=== PATIENT | female | born 1995 | race Hispanic/Latino ===

== ENCOUNTER 2023-02-14 17:34 | Emergency (ER) | payer MEDICAID ==
[~2023-02-14] VITALS: Ht 160 cm; Wt 94.8 kg
[~2023-02-14 17:34] MED LIST: ACET1TAB12 PO; IBUP-2070 PO
[2023-02-14 17:39] VITALS: BP 113/70; PULSE 114; RESP 16; O2SAT 97
[2023-02-14 18:32] LABS: RAPID GROUP A STREP negative (NEGATIVE)
[2023-02-14 18:33] LABS: SARS-CoV-2, RNA, NAAT NEGATIVE SARS CoV-2 (NEGATIVE)
[2023-02-14 18:42] LABS: INFLUENZA TYPE A Negative For Type A (NEGATIVE); INFLUENZA TYPE B Negative For Type B (NEGATIVE)
== END 2023-02-14 20:28 | disposition left against medical advice (07) ==
LOC: EDH 17:34
DX: R05.9 Cough, unspecified (principal); R09.81 Nasal congestion; R51.9 Headache, unspecified; Z53.21 Procedure and treatment not carried out due to patient leaving prior to being seen by health care provider; Z20.822 Contact with and (suspected) exposure to COVID-19
CPT/HCPCS: 99281; 87635; 87880; 87804 ×2; C9803